=== PATIENT | male | born 2000 | race Caucasian/White ===

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

== ENCOUNTER 2018-09-23 11:14 | Emergency (ER) | payer BC, OTHER, SELFPAY ==
[2018-09-23 11:23] VITALS: BP 130/65; PULSE 64; RESP 18; TEMP 36.6; O2SAT 98
--- NOTE | 2018-09-23 11:27 | DI.RAD.S_ITS ---
PROCEDURE: XR CHEST 2V INDICATIONS: chest pain TECHNIQUE: 2 views of the chest were acquired. COMPARISON: None. FINDINGS: Surgical changes and devices: None. Lungs and pleura: Lungs are clear. No pleural effusions or pneumothorax. Mediastinum: Mediastinal contours are normal. Heart size is normal. Bones and chest wall: No suspicious bony abnormalities. Soft tissues appear unremarkable. IMPRESSION: No acute cardiopulmonary disease. Dictated by: Cameron Kong M.D. on 09/23/2018 at 12:58 Approved by: Cameron Kong M.D. on 09/23/2018 at 12:59
[2018-09-23 11:55] VITALS: BP 121/71; PULSE 54; RESP 14; O2SAT 100
[2018-09-23 11:56] LABS: Add Manual Diff / Slide Review NO; Basophils Absolute Auto 100 /uL (0-100); Basophils Percent Auto 0.9 % (0-2); Eosinophils Absolute Auto 300 /uL (0-450); Eosinophils Percent Auto 5.1 % (2-4); Hematocrit 44.4 % (41-53); Hemoglobin 14.9 g/dL (13.5-17.5); Lymphocytes Absolute Auto 1900 /uL (1100-4500); Lymphocytes Percent Auto 31.9 % (25-40); Mean Corpuscular HGB Conc 33.5 % (30-36); Mean Corpuscular Hemoglobin 29.7 PG (26-34); Mean Corpuscular Volume 88.6 fL (80-100); Monocytes Absolute Auto 600 /uL (0-900); Monocytes Percent Auto 10.2 % (3-14); Neutrophils Absolute Auto 3000 /uL (1500-7000); Neutrophils Percent Auto 51.9 % (50-75); Platelet Count 243 X10^3/uL (150-400); Red Blood Cell Count 5.01 X10^6/uL (4.5-5.9); Red Cell Distribution Width 12.8 % (11.6-14.8); White Blood Cell Count 5.9 X10^3/uL (4.5-11.0)
[2018-09-23 11:57] VITALS: BP 127/71; PULSE 71; RESP 17; O2SAT 100
[2018-09-23 12:00] VITALS: BP 138/77; PULSE 63; RESP 14; TEMP 37.3; O2SAT 100
[2018-09-23 12:01] LABS: Prothrombin Time 11.7 SECONDS (10.1-12.7)
[2018-09-23 12:04] LABS: PTT Partial Thromboplastin Tim 31 SECONDS (26.4-36.2)
[2018-09-23 12:05] LABS: Alanine Aminotransferase 20 IU/L (21-72); Albumin 4.9 g/dL (3.5-5.0); Albumin Globulin Ratio 1.3 (1.0-2.8); Alkaline Phosphatase 85 U/L (38-126); Aspartate Aminotransferase 24 IU/L (17-59); BUN Creatinine Ratio 17.5 (6-22); Bilirubin Total 0.6 mg/dL (0.2-1.3); Blood Urea Nitrogen 14 mg/dL (9-20); Calcium 9.6 mg/dL (8.4-10.2); Carbon Dioxide 27 mmol/L (22-32); Chloride 102 mmol/L (98-107); Creatine Kinase 129 U/L (55-170); Estimated Glomerular Filt Rate > 60.0 mL/min (>60); Globulin 3.7 g/dL (1.7-4.1); Glucose 93 mg/dL (70-100); HEMOLYSIS < 15 (0-50); Lipase 40 U/L (23-300); Potassium 4.1 mmol/L (3.4-5.1); Sodium 141 mmol/L (137-145); Total Protein 8.6 g/dL (6.3-8.2)
[2018-09-23 12:17] LABS: Troponin I < 0.012 ng/mL (0.01-0.034)
[2018-09-23 12:20] LABS: CKMB % Relative Index 0.9 % (1.5-5.0); Creatine Kinase MB 1.12 ng/mL (<2.37)
[2018-09-23 12:39] VITALS: BP 129/75; PULSE 55; RESP 18; O2SAT 100
--- NOTE | 2018-09-23 13:36 | ED.CHESTPAIN ---
HPI - Chest Pain <[facility] - Last Filed: 09/23/18 13:42> General Chief Complaint: Chest Pain Stated Complaint: heart issues-angina Time Seen by Provider: 09/23/18 12:24 Source: patient Mode of arrival: ambulatory Limitations: no limitations History of Present Illness HPI narrative: The patient is a 18-year-old male who denies medical history presents with chief complaint of chest pain. He states he has chest pain that she has for a few seconds either on the right-sided left side of his chest. He states this has been going on for weeks. He denies any associated palpitations, swelling of extremities. He states he did not get evaluated for it because he does not have time. He has not followed up with his primary care provider. He denies any syncope. He states he feels dizzy when he stands up too quickly at times, but not correlated with this chest pain. He denies any cough congestion or fever. He does state that he smokes marijuana on occasion, and does have a history of cocaine use, last use several months ago. He states that he googled his symptoms, and believes he has angina. Related Data Home Medications Medication Instructions Recorded Confirmed No Known Home Medications 09/23/18 09/23/18 Allergies Allergy/AdvReac Type Severity Reaction Status Date / Time No Known Drug Allergies Allergy Verified 09/23/18 11:26 Review of Systems <[facility] - Last Filed: 09/23/18 13:42> Review of Systems GENERAL: Denies chills, fatigue, malaise, fever, sweats. HEENT: Denies sinus pain, ear pain, sore throat, difficulty swallowing, dizziness. RESPIRATORY: Denies dyspnea, cough, wheezing, hemoptysis, sputum. CARDIOVASCULAR: See HPI GASTROINTESTINAL: Denies nausea, vomiting, abdominal pain, diarrhea, constipation, melena. : Denies dysuria, frequency, incontinence, hematuria, urinary retention. MUSCULOSKELETAL: denies weakness, joint pain, or bony pain SKIN: Denies rash, skin lesions, or other NEUROLOGIC: Denies weakness, headache, numbness, change in speech, confusion, seizures, incoordination. PSYCHIATRIC: No concerning psychosocial issues. 12 point review of systems is negative except for those stated above PFSH <[facility] - Last Filed: 09/23/18 13:42> Medical History (Updated 09/23/18 @ 13:40 by KERI Grove) Cocaine use (Acute) Family history non-contributory (Acute) Social History Smoking Status: Never smoker Social History Smoking Status: Never smoker Exam <KERI [place] - Last Filed: 09/23/18 13:42> Narrative Exam Narrative: GENERAL: This is a well-nourished, well-developed patient, no acute distress HEAD: Atraumatic. Normocephalic. No temporal or scalp tenderness. EYES: Pupils equal round and reactive. Extraocular motions intact. No scleral icterus. No injection or drainage. ENT: Nose without bleeding, purulent drainage or septal hematoma. Throat without erythema, tonsillar hypertrophy or exudate. Uvula midline. Airway patent. NECK: Trachea midline. No JVD or lymphadenopathy. Supple, nontender, no meningeal signs. CARDIOVASCULAR: Regular rate and rhythm without murmurs, gallops, or rubs. Bradycardic RESPIRATORY: Clear to auscultation. Breath sounds equal bilaterally. No wheezes, rales, or rhonchi. No cough. No increased respiratory effort. No accessory muscle use. GASTROINTESTINAL: Abdomen soft, non-tender, nondistended. No hepato-splenomegaly, or palpable masses. No guarding. EXTREMITIES: No clubbing, cyanosis, or edema. No joint tenderness, effusion, or edema noted. BACK: Nontender without deformity or crepitance. No flank tenderness. NEURO: AOx3. SKIN: No rash or erythema. Initial Vital Signs Initial Vital Signs: Vital Signs Temperature 97.8 F 09/23/18 11:23 Pulse Rate 64 09/23/18 11:23 Respiratory Rate 18 09/23/18 11:23 Blood Pressure 130/65 09/23/18 11:23 Pulse Oximetry 98 09/23/18 11:23 <Radha Smith MD - Last Filed: 09/23/18 19:21> Initial Vital Signs Initial Vital Signs: Vital Signs Temperature 97.8 F 09/23/18 11:23 Pulse Rate 64 09/23/18 11:23 Respiratory Rate 18 09/23/18 11:23 Blood Pressure 130/65 09/23/18 11:23 Pulse Oximetry 98 09/23/18 11:23 Course <KERI Grove - Last Filed: 09/23/18 13:42> Orders Ordered: ED Orders 09/23/18 11:27 XR chest 2V Stat 09/23/18 11:29 EKG-12 Lead Stat 09/23/18 11:44 Complete Blood Count AUTO DIFF Stat Comprehensive Metabolic Panel Stat Lipase Stat Partial Thromboplastin Time Stat Prothrombin Time INR Stat Troponin & CK Cardiac Panel Stat Vital Signs - 8 hr 09/23/18 11:23 09/23/18 11:55 09/23/18 11:57 Temperature 97.8 F Pulse Rate 64 54 L 71 Respiratory Rate 18 14 17 Blood Pressure 130/65 Blood Pressure [Right Arm] 121/71 127/71 Pulse Oximetry 98 100 100 09/23/18 12:00 09/23/18 12:39 09/23/18 13:43 Temperature 99.1 F Pulse Rate 63 55 L 52 L Respiratory Rate 14 18 16 Blood Pressure 132/77 Blood Pressure [Right Arm] 138/77 129/75 Pulse Oximetry 100 100 100 <Radha Smith MD - Last Filed: 09/23/18 19:21> Orders Ordered: ED Orders 09/23/18 11:27 XR chest 2V Stat 09/23/18 11:29 EKG-12 Lead Stat 09/23/18 11:44 Complete Blood Count AUTO DIFF Stat Comprehensive Metabolic Panel Stat Lipase Stat Partial Thromboplastin Time Stat Prothrombin Time INR Stat Troponin & CK Cardiac Panel Stat Vital Signs - 8 hr 09/23/18 11:23 09/23/18 11:55 09/23/18 11:57 Temperature 97.8 F Pulse Rate 64 54 L 71 Respiratory Rate 18 14 17 Blood Pressure 130/65 Blood Pressure [Right Arm] 121/71 127/71 Pulse Oximetry 98 100 100 09/23/18 12:00 09/23/18 12:39 09/23/18 13:43 Temperature 99.1 F Pulse Rate 63 55 L 52 L Respiratory Rate 14 18 16 Blood Pressure 132/77 Blood Pressure [Right Arm] 138/77 129/75 Pulse Oximetry 100 100 100 MDM - Chest Pain <KERI Grove - Last Filed: 09/23/18 13:42> Lab Data Result diagrams: 09/23/18 11:44 09/23/18 11:44 Lab Results 09/23/18 09/23/18 09/23/18 Range/Units 11:44 11:44 11:44 WBC 5.9 (4.5-11.0) X10^3/uL RBC 5.01 (4.5-5.9) X10^6/uL Hgb 14.9 (13.5-17.5) g/dL Hct 44.4 (41-53) % MCV 88.6 (80-100) fL MCH 29.7 (26-34) PG MCHC 33.5 (30-36) % RDW 12.8 (11.6-14.8) % Plt Count 243 (150-400) X10^3/uL Neut % (Auto) 51.9 (50-75) % Lymph % (Auto) 31.9 (25-40) % Glenn % (Auto) 10.2 (3-14) % Eos % (Auto) 5.1 H (2-4) % Baso % (Auto) 0.9 (0-2) % Neut # (Auto) 3000 (9855-8622) /uL Lymph # (Auto) 1900 (1288-4713) /uL Glenn # (Auto) 600 (0-900) /uL Eos # (Auto) 300 (0-450) /uL Baso # (Auto) 100 (0-100) /uL PT 11.7 (10.1-12.7) SECONDS INR 1.0 (0.9-1.3) APTT 31 (26.4-36.2) SECONDS Sodium 141 (137-145) mmol/L Potassium 4.1 (3.4-5.1) mmol/L Chloride 102 (98-107) mmol/L Carbon Dioxide 27 (22-32) mmol/L BUN 14 (9-20) mg/dL Creatinine 0.80 (0.66-1.25) mg/dL Estimated GFR > 60.0 (>60) mL/min BUN/Creatinine Ratio 17.5 (6-22) Glucose 93 (70-100) mg/dL Calcium 9.6 (8.4-10.2) mg/dL Total Bilirubin 0.6 (0.2-1.3) mg/dL AST 24 (17-59) IU/L ALT 20 L (21-72) IU/L Alkaline Phosphatase 85 (38-126) U/L Total Creatine Kinase 129 (55-170) U/L CK-MB (CK-2) 1.12 (<2.37) ng/mL CK-MB (CK-2) Rel Index 0.9 L (1.5-5.0) % Troponin I < 0.012 (0.01-0.034) ng/mL Total Protein 8.6 H (6.3-8.2) g/dL Albumin 4.9 (3.5-5.0) g/dL Globulin 3.7 (1.7-4.1) g/dL Albumin/Globulin Ratio 1.3 (1.0-2.8) Lipase 40 (23-300) U/L Imaging Data Chest x-ray: Radiologist's impression: [address] [address] XRay Report Signed Patient: Nazario Rodriguez SMR#: [id number] : 2000Acct:[id number] Age/Sex: MDate of Service: 09/23/18 Loc: ED Accession Number: [id number] Procedure: XR chest 2V Ordering Provider: Radha Smith MD PROCEDURE: XR CHEST 2V INDICATIONS: chest pain TECHNIQUE: 2 views of the chest were acquired. COMPARISON: None. FINDINGS: Surgical changes and devices: None. Lungs and pleura: Lungs are clear. No pleural effusions or pneumothorax. Mediastinum: Mediastinal contours are normal. Heart size is normal. Bones and chest wall: No suspicious bony abnormalities. Soft tissues appear unremarkable. IMPRESSION: No acute cardiopulmonary disease. Dictated by: Cameron Kong M.D. on 09/23/2018 at 12:58 Approved by: Cameron Kong M.D. on 09/23/2018 at 12:59 ECG Data Attestation: I personally reviewed and interpreted this ECG as follows: Interpretation: Sinus bradycardia. Ventricular rate 57. No ST elevation or depression. No ectopy noted. viewed by Dr Sarah NICOLE Narrative Medical decision making narrative: The patient is a 18-year-old female who presents with chest pain that lasts for a few seconds a few times a day which has gone on for several months. He has a normal EKG, normal chest x-ray negative troponin. He is in no acute distress. Given his story, I highly doubt that this pain is and as the patient suspects. I discussed at length follow up with his PCP. Discussed coming back to ER for any acute concerns such as syncope, chest pain that is not relieved after a few seconds etc. He is also afebrile and in no acute distress on his cell phone in the emergency department. Patient has no questions or concerns upon discharge <Radha Smith MD - Last Filed: 09/23/18 19:21> Lab Data Lab Results 09/23/18 09/23/18 09/23/18 Range/Units 11:44 11:44 11:44 WBC 5.9 (4.5-11.0) X10^3/uL RBC 5.01 (4.5-5.9) X10^6/uL Hgb 14.9 (13.5-17.5) g/dL Hct 44.4 (41-53) % MCV 88.6 (80-100) fL MCH 29.7 (26-34) PG MCHC 33.5 (30-36) % RDW 12.8 (11.6-14.8) % Plt Count 243 (150-400) X10^3/uL Neut % (Auto) 51.9 (50-75) % Lymph % (Auto) 31.9 (25-40) % Glenn % (Auto) 10.2 (3-14) % Eos % (Auto) 5.1 H (2-4) % Baso % (Auto) 0.9 (0-2) % Neut # (Auto) 3000 (6107-3273) /uL Lymph # (Auto) 1900 (8881-5958) /uL Glenn # (Auto) 600 (0-900) /uL Eos # (Auto) 300 (0-450) /uL Baso # (Auto) 100 (0-100) /uL PT 11.7 (10.1-12.7) SECONDS INR 1.0 (0.9-1.3) APTT 31 (26.4-36.2) SECONDS Sodium 141 (137-145) mmol/L Potassium 4.1 (3.4-5.1) mmol/L Chloride 102 (98-107) mmol/L Carbon Dioxide 27 (22-32) mmol/L BUN 14 (9-20) mg/dL Creatinine 0.80 (0.66-1.25) mg/dL Estimated GFR > 60.0 (>60) mL/min BUN/Creatinine Ratio 17.5 (6-22) Glucose 93 (70-100) mg/dL Calcium 9.6 (8.4-10.2) mg/dL Total Bilirubin 0.6 (0.2-1.3) mg/dL AST 24 (17-59) IU/L ALT 20 L (21-72) IU/L Alkaline Phosphatase 85 (38-126) U/L Total Creatine Kinase 129 (55-170) U/L CK-MB (CK-2) 1.12 (<2.37) ng/mL CK-MB (CK-2) Rel Index 0.9 L (1.5-5.0) % Troponin I < 0.012 (0.01-0.034) ng/mL Total Protein 8.6 H (6.3-8.2) g/dL Albumin 4.9 (3.5-5.0) g/dL Globulin 3.7 (1.7-4.1) g/dL Albumin/Globulin Ratio 1.3 (1.0-2.8) Lipase 40 (23-300) U/L Discharge Plan Departure Patient Disposition: Home Clinical Impression: Atypical chest pain Discharge Date/Time: 09/23/18 13:46 Interventions: ED Discharge Assessment Last Done: 09/23/18 13:43 Instructions: DI for Atypical Chest Pain Activity Restrictions/Additional Instructions: Your chest x-ray shows no pneumonia. Your lab work came back within normal limits. Please follow up with primary care provider. Please come back to the emergency department for any acute concerns such as passing out, significant shortness of breath etc Please avoid illicit drugs such as cocaine. Please come back to emergency department for any acute concerns. Prescriptions: No Action No Known Home Medications RF: 0
--- NOTE | 2018-09-23 13:42 | ED_ITS ---
HPI - Chest Pain [facility] Last Filed: 09/23/18 13:42> General Chief Complaint: Chest Pain Stated Complaint: heart issues-angina Time Seen by Provider: 09/23/18 12:24 Source: patient Mode of arrival: ambulatory Limitations: no limitations History of Present Illness HPI narrative: The patient is a 18-year-old male who denies medical history presents with chief complaint of chest pain. He states he has chest pain that she has for a few seconds either on the right-sided left side of his chest. He states this has been going on for weeks. He denies any associated palpitations, swelling of extremities. He states he did not get evaluated for it because he does not have time. He has not followed up with his primary care provider. He denies any syncope. He states he feels dizzy when he stands up too quickly at times, but not correlated with this chest pain. He denies any cough congestion or fever. He does state that he smokes marijuana on occasion, and does have a history of cocaine use, last use several months ago. He states that he googled his symptoms, and believes he has angina. Related Data Home Medications Medication Instructions Recorded Confirmed No Known Home Medications 09/23/18 09/23/18 Allergies Allergy/AdvReac Type Severity Reaction Status Date / Time No Known Drug Allergies Allergy Verified 09/23/18 11:26 Review of Systems <[facility] Last Filed: 09/23/18 13:42> Review of Systems GENERAL: Denies chills, fatigue, malaise, fever, sweats. HEENT: Denies sinus pain, ear pain, sore throat, difficulty swallowing, dizziness. RESPIRATORY: Denies dyspnea, cough, wheezing, hemoptysis, sputum. CARDIOVASCULAR: See HPI GASTROINTESTINAL: Denies nausea, vomiting, abdominal pain, diarrhea, constipation, melena. : Denies dysuria, frequency, incontinence, hematuria, urinary retention. MUSCULOSKELETAL: denies weakness, joint pain, or bony pain SKIN: Denies rash, skin lesions, or other NEUROLOGIC: Denies weakness, headache, numbness, change in speech, confusion, seizures, incoordination. PSYCHIATRIC: No concerning psychosocial issues. 12 point review of systems is negative except for those stated above PFSH <[facility] - Last Filed: 09/23/18 13:42> Medical History (Updated 09/23/18 @ 13:40 by KERI Grove) Cocaine use (Acute) Family history non-contributory (Acute) Social History Smoking Status: Never smoker Social History Smoking Status: Never smoker Exam <KERI Grove - Last Filed: 09/23/18 13:42> Narrative Exam Narrative: GENERAL: This is a well-nourished, well-developed patient, no acute distress HEAD: Atraumatic. Normocephalic. No temporal or scalp tenderness. EYES: Pupils equal round and reactive. Extraocular motions intact. No scleral icterus. No injection or drainage. ENT: Nose without bleeding, purulent drainage or septal hematoma. Throat without erythema, tonsillar hypertrophy or exudate. Uvula midline. Airway patent. NECK: Trachea midline. No JVD or lymphadenopathy. Supple, nontender, no meningeal signs. CARDIOVASCULAR: Regular rate and rhythm without murmurs, gallops, or rubs. Bradycardic RESPIRATORY: Clear to auscultation. Breath sounds equal bilaterally. No wheezes, rales, or rhonchi. No cough. No increased respiratory effort. No accessory muscle use. GASTROINTESTINAL: Abdomen soft, non-tender, nondistended. No hepato- splenomegaly, or palpable masses. No guarding. EXTREMITIES: No clubbing, cyanosis, or edema. No joint tenderness, effusion, or edema noted. BACK: Nontender without deformity or crepitance. No flank tenderness. NEURO: AOx3. SKIN: No rash or erythema. Initial Vital Signs Initial Vital Signs: Vital Signs Temperature 97.8 F 09/23/18 11:23 Pulse Rate 64 09/23/18 11:23 Respiratory Rate 18 09/23/18 11:23 Blood Pressure 130/65 09/23/18 11:23 Pulse Oximetry 98 09/23/18 11:23 <Radha Smith MD - Last Filed: 09/23/18 19:21> Initial Vital Signs Initial Vital Signs: Vital Signs Temperature 97.8 F 09/23/18 11:23 Pulse Rate 64 09/23/18 11:23 Respiratory Rate 18 09/23/18 11:23 Blood Pressure 130/65 09/23/18 11:23 Pulse Oximetry 98 09/23/18 11:23 Course <KERI Grove - Last Filed: 09/23/18 13:42> Orders Ordered: ED Orders 09/23/18 11:27 XR chest 2V Stat 09/23/18 11:29 EKG-12 Lead Stat 09/23/18 11:44 Complete Blood Count AUTO DIFF Stat Comprehensive Metabolic Panel Stat Lipase Stat Partial Thromboplastin Time Stat Prothrombin Time INR Stat Troponin & CK Cardiac Panel Stat Vital Signs - 8 hr 09/23/18 11:23 09/23/18 11:55 09/23/18 11:57 Temperature 97.8 F Pulse Rate 64 54 L 71 Respiratory Rate 18 14 17 Blood Pressure 130/65 Blood Pressure [Right Arm] 121/71 127/71 Pulse Oximetry 98 100 100 09/23/18 12:00 09/23/18 12:39 09/23/18 13:43 Temperature 99.1 F Pulse Rate 63 55 L 52 L Respiratory Rate 14 18 16 Blood Pressure 132/77 Blood Pressure [Right Arm] 138/77 129/75 Pulse Oximetry 100 100 100 <Radha Smith MD - Last Filed: 09/23/18 19:21> Orders Ordered: ED Orders 09/23/18 11:27 XR chest 2V Stat 09/23/18 11:29 EKG-12 Lead Stat 09/23/18 11:44 Complete Blood Count AUTO DIFF Stat Comprehensive Metabolic Panel Stat Lipase Stat Partial Thromboplastin Time Stat Prothrombin Time INR Stat Troponin & CK Cardiac Panel Stat Vital Signs - 8 hr 09/23/18 11:23 09/23/18 11:55 09/23/18 11:57 Temperature 97.8 F Pulse Rate 64 54 L 71 Respiratory Rate 18 14 17 Blood Pressure 130/65 Blood Pressure [Right Arm] 121/71 127/71 Pulse Oximetry 98 100 100 09/23/18 12:00 09/23/18 12:39 09/23/18 13:43 Temperature 99.1 F Pulse Rate 63 55 L 52 L Respiratory Rate 14 18 16 Blood Pressure 132/77 Blood Pressure [Right Arm] 138/77 129/75 Pulse Oximetry 100 100 100 MDM - Chest Pain <KERI Grove - Last Filed: 09/23/18 13:42> Lab Data Result diagrams: 09/23/18 11:44 09/23/18 11:44 Lab Results 09/23/18 09/23/18 09/23/18 Range/Units 11:44 11:44 11:44 WBC 5.9 (4.5-11.0) X10^3/uL RBC 5.01 (4.5-5.9) X10^6/uL Hgb 14.9 (13.5-17.5) g/dL Hct 44.4 (41-53) % MCV 88.6 (80-100) fL MCH 29.7 (26-34) PG MCHC 33.5 (30-36) % RDW 12.8 (11.6-14.8) % Plt Count 243 (150-400) X10^3/uL Neut % (Auto) 51.9 (50-75) % Lymph % (Auto) 31.9 (25-40) % [place] % (Auto) 10.2 (3-14) % Eos % (Auto) 5.1 H (2-4) % Baso % (Auto) 0.9 (0-2) % Neut # (Auto) 3000 (2568-8680) /uL Lymph # (Auto) 1900 (8119-1388) /uL [place] # (Auto) 600 (0-900) /uL Eos # (Auto) 300 (0-450) /uL Baso # (Auto) 100 (0-100) /uL PT 11.7 (10.1-12.7) SECONDS INR 1.0 (0.9-1.3) APTT 31 (26.4-36.2) SECONDS Sodium 141 (137-145) mmol/L Potassium 4.1 (3.4-5.1) mmol/L Chloride 102 (98-107) mmol/L Carbon Dioxide 27 (22-32) mmol/L BUN 14 (9-20) mg/dL Creatinine 0.80 (0.66-1.25) mg/dL Estimated GFR > 60.0 (>60) mL/min BUN/Creatinine Ratio 17.5 (6-22) Glucose 93 (70-100) mg/dL Calcium 9.6 (8.4-10.2) mg/dL Total Bilirubin 0.6 (0.2-1.3) mg/dL AST 24 (17-59) IU/L ALT 20 L (21-72) IU/L Alkaline Phosphatase 85 (38-126) U/L Total Creatine Kinase 129 (55-170) U/L CK-MB (CK-2) 1.12 (<2.37) ng/mL CK-MB (CK-2) Rel Index 0.9 L (1.5-5.0) % Troponin I < 0.012 (0.01-0.034) ng/mL Total Protein 8.6 H (6.3-8.2) g/dL Albumin 4.9 (3.5-5.0) g/dL Globulin 3.7 (1.7-4.1) g/dL Albumin/Globulin Ratio 1.3 (1.0-2.8) Lipase 40 (23-300) U/L Imaging Data Chest x-ray: Radiologist's impression: [address] [address] XRay Report Signed Patient: Nazario Rodriguez SMR#: [id number] : 2000Acct:[id number] Age/Sex: MDate of Service: 09/23/18 Loc: ED Accession Number: [id number] Procedure: XR chest 2V Ordering Provider: Radha Smith MD PROCEDURE: XR CHEST 2V INDICATIONS: chest pain TECHNIQUE: 2 views of the chest were acquired. COMPARISON: None. FINDINGS: Surgical changes and devices: None. Lungs and pleura: Lungs are clear. No pleural effusions or pneumothorax. Mediastinum: Mediastinal contours are normal. Heart size is normal. Bones and chest wall: No suspicious bony abnormalities. Soft tissues appear unremarkable. IMPRESSION: No acute cardiopulmonary disease. Dictated by: Cameron Kong M.D. on 09/23/2018 at 12:58 Approved by: Cameron Kong M.D. on 09/23/2018 at 12:59 ECG Data Attestation: I personally reviewed and interpreted this ECG as follows: Interpretation: Sinus bradycardia. Ventricular rate 57. No ST elevation or depression. No ectopy noted. viewed by Dr Sarah NICOLE Narrative Medical decision making narrative: The patient is a 18-year-old female who presents with chest pain that lasts for a few seconds a few times a day which has gone on for several months. He has a normal EKG, normal chest x-ray negative troponin. He is in no acute distress. Given his story, I highly doubt that this pain is and as the patient suspects. I discussed at length follow up with his PCP. Discussed coming back to ER for any acute concerns such as syncope, chest pain that is not relieved after a few seconds etc. He is also afebrile and in no acute distress on his cell phone in the emergency department. Patient has no questions or concerns upon discharge <Radha Smith MD - Last Filed: 09/23/18 19:21> Lab Data Lab Results 09/23/18 09/23/18 09/23/18 Range/Units 11:44 11:44 11:44 WBC 5.9 (4.5-11.0) X10^3/uL RBC 5.01 (4.5-5.9) X10^6/uL Hgb 14.9 (13.5-17.5) g/dL Hct 44.4 (41-53) % MCV 88.6 (80-100) fL MCH 29.7 (26-34) PG MCHC 33.5 (30-36) % RDW 12.8 (11.6-14.8) % Plt Count 243 (150-400) X10^3/uL Neut % (Auto) 51.9 (50-75) % Lymph % (Auto) 31.9 (25-40) % [place] % (Auto) 10.2 (3-14) % Eos % (Auto) 5.1 H (2-4) % Baso % (Auto) 0.9 (0-2) % Neut # (Auto) 3000 (6011-3566) /uL Lymph # (Auto) 1900 (1976-8233) /uL [place] # (Auto) 600 (0-900) /uL Eos # (Auto) 300 (0-450) /uL Baso # (Auto) 100 (0-100) /uL PT 11.7 (10.1-12.7) SECONDS INR 1.0 (0.9-1.3) APTT 31 (26.4-36.2) SECONDS Sodium 141 (137-145) mmol/L Potassium 4.1 (3.4-5.1) mmol/L Chloride 102 (98-107) mmol/L Carbon Dioxide 27 (22-32) mmol/L BUN 14 (9-20) mg/dL Creatinine 0.80 (0.66-1.25) mg/dL Estimated GFR > 60.0 (>60) mL/min BUN/Creatinine Ratio 17.5 (6-22) Glucose 93 (70-100) mg/dL Calcium 9.6 (8.4-10.2) mg/dL Total Bilirubin 0.6 (0.2-1.3) mg/dL AST 24 (17-59) IU/L ALT 20 L (21-72) IU/L Alkaline Phosphatase 85 (38-126) U/L Total Creatine Kinase 129 (55-170) U/L CK-MB (CK-2) 1.12 (<2.37) ng/mL CK-MB (CK-2) Rel Index 0.9 L (1.5-5.0) % Troponin I < 0.012 (0.01-0.034) ng/mL Total Protein 8.6 H (6.3-8.2) g/dL Albumin 4.9 (3.5-5.0) g/dL Globulin 3.7 (1.7-4.1) g/dL Albumin/Globulin Ratio 1.3 (1.0-2.8) Lipase 40 (23-300) U/L Discharge Plan Departure Patient Disposition: Home Clinical Impression: Atypical chest pain Discharge Date/Time: 09/23/18 13:46 Interventions: ED Discharge Assessment Last Done: 09/23/18 13:43 Instructions: DI for Atypical Chest Pain Activity Restrictions/Additional Instructions: Your chest x-ray shows no pneumonia. Your lab work came back within normal limits. Please follow up with primary care provider. Please come back to the emergency department for any acute concerns such as passing out, significant shortness of breath etc Please avoid illicit drugs such as cocaine. Please come back to emergency department for any acute concerns. Prescriptions: No Action No Known Home Medications RF: 0
[2018-09-23 13:43] VITALS: BP 132/77; PULSE 52; RESP 16; O2SAT 100
== END 2018-09-23 13:46 | disposition home or self-care (01) ==
PROVIDERS: Emergency Medicine; Emergency Provider Nurse Practitioner Family
DX: R07.89 Other chest pain (principal); R00.1 Bradycardia, unspecified
CPT/HCPCS: 36415; 71046; 80053; 82550; 82553; 83690; 84484; 85025; 85610; 85730; 93005; 99283; 99285

== ENCOUNTER 2020-09-07 13:26 | Emergency (ER) | payer OTHER, BC, SELFPAY ==
[2020-09-07 14:05] VITALS: BP 101/58; PULSE 69; RESP 14; TEMP 36.6; O2SAT 98; BMI 22.2
--- NOTE | 2020-09-07 16:41 | ED_ITS ---
HPI - Wound/Laceration General Chief Complaint: Wound/Laceration Stated Complaint: glass cut left arm/deep/can see tendon Time Seen by Provider: 09/07/20 15:30 Source: patient Mode of arrival: Ambulatory Limitations: no limitations History of Present Illness HPI narrative: Patient is a 20-year-old male who presents with left arm laceration is after glass shattered. 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 He has 3 lacerations on his left arm. Initially no numbness or tingling however was bandage quite tightly and is now having some numbness in his pointer finger. His he is able to flex and extend at his wrist. Onset (ago): hour(s) Related Data Previous Rx's Medication Instructions Recorded cephalexin 500 mg PO BID 7 Days #14 cap 09/07/20 Allergies Allergy/AdvReac Type Severity Reaction Status Date / Time No Known Drug Allergies Allergy Verified 09/07/20 14:09 Review of Systems Review of Systems Narrative: GENERAL: Denies chills,fever HEENT: Denies throat pain RESPIRATORY: Denies dyspnea, cough, wheezing CARDIOVASCULAR: Denies chest pain, palpitations GASTROINTESTINAL: Denies nausea, vomiting MUSCULOSKELETAL: Denies extremity pain, injury SKIN: See HPI NEUROLOGIC: Denies weakness, dizziness, headache, numbness 8 point review of systems is negative except for those stated above and HPI Patient History Medical History Cocaine use Family history non-contributory Social History Smoking Status: Never smoker Smoking Status: Never smoker alcohol intake frequency: a few times a week Substance Use Type: marijuana and crack/cocaine Exam Initial Vital Signs Initial Vital Signs: Vital Signs Temperature 97.8 F 09/07/20 14:05 Pulse Rate 69 09/07/20 14:05 Respiratory Rate 14 09/07/20 14:05 Blood Pressure 101/58 L 09/07/20 14:05 Pulse Oximetry 98 09/07/20 14:05 GENERAL: Well-appearing, well-nourished and in no acute distress. CARDIOVASCULAR: peripheral pulses in tact, cap refill <2 sec RESPIRATORY: No respiratory distress, speaks in full sentences without difficulty EXTREMITIES: Normal range of motion, no clubbing or edema. Neurovascularly intact Left wrist flexion and extension good abduction an ad duction of fingers able to make fist able to fully flex and extend all fingers cap refill less than 2 secon ds NEUROLOGICAL: Cranial nerves II through XII grossly intact. Normal gait and speech. SKIN: 3 lacerations as pictures Skin Full Arm Front Left: 1. 4 cm tendon identified in tact able to flex and extend wrist 2. 6 cm deep structures intact adipose tissue exposed 3. Flap structure 3 cm x 2 cm deep structures intact Procedures Laceration Repair Laceration 1: Site: upper extremity Side (If applicable): left Size (cm): 4 Description: linear Depth: simple, single layer Local Anesthetic: lidocaine 1% and with bicarb Amount of anesthesia used (mL): 5 Pre-repair: wound explored, irrigated extensively and deep structures intact (Tendon identified, no nerve involvement) Skin layer closed with: nylon Size (cm): 4-0 Number of sutures: 4 Technique: simple, interrupted (3) and horizontal mattress (1) Laceration 2: Site: upper extremity Side (If applicable): left Size (cm): 6 Description: linear Depth: simple, single layer Local Anesthetic: lidocaine 1% and with bicarb Amount of anesthesia used (mL): 5 Pre-repair: wound explored, irrigated extensively and deep structures intact Skin layer closed with: nylon Size (cm): 4-0 Number of sutures: 7 Technique: simple, interrupted (6) and horizontal mattress (1) Laceration 3: Site: upper extremity Side (If applicable): left Description: flap (3x2cm) Depth: simple, single layer Local Anesthetic: lidocaine 1% and with bicarb Amount of anesthesia used (mL): 5 Pre-repair: wound explored, irrigated extensively and deep structures intact Skin layer closed with: nylon Size (cm): 4-0 Number of sutures: 9 Technique: simple, interrupted Course Orders Ordered: Discontinued Medications Acetaminophen (Acetaminophen 325 Mg Tablet) 975 mg PO NOW ONE Stop: 09/07/20 17:28 Last Admin: 09/07/20 17:30 Dose: 975 mg Documented by: KEN Ibuprofen (Ibuprofen 400 Mg Tablet) 800 mg PO NOW ONE Stop: 09/07/20 17:28 Last Admin: 09/07/20 17:30 Dose: 800 mg Documented by: KEN Lidocaine/Sodium Bicarbonate (Lido 1%/Sod Bicarb 8.4% (10ml) 10 Ml Syringe) 10 ml INJ NOW ONE Stop: 09/07/20 16:46 Last Admin: 09/07/20 16:49 Dose: 10 ml Documented by: KEN Vital Signs Vital signs: Vital Signs - 8 hr 09/07/20 14:05 09/07/20 18:11 Temperature 97.8 F Pulse Rate 69 68 Respiratory Rate 14 Blood Pressure 101/58 L 133/63 Pulse Oximetry 98 96 MDM - Wound/Laceration MDM Narrative Medical decision making narrative: No evidence of glass or foreign bodies appreciated in lacerations. Lacerations came together nicely improved patient given instructions on care. Discharge Plan Departure Patient Disposition: Home Clinical Impression: Laceration of left forearm Qualifiers: Encounter type: initial encounter Qualified Code(s): S51.812A - Laceration w ithout foreign body of left forearm, initial encounter Instructions: DI for Laceration Repair Activity Restrictions/Additional Instructions: 1. Have your suture removed in 7 days, you may go to walk-in clinic, return to the ER or call your primary care physician. 2. No soaking in water including dishes, bathtubs, Lakes, swimming pools etc Apply Neosporin 1 times a day to help with healing 3. Signs of infection include, but not limited to, increased redness, increased swelling, increased pain, fever and purulent drainage, if the symptoms should arise, you may need an antibiotic and you should have a reevaluation either by your primary care provider or by the emergency department. MEDICATIONS Motrin 800 mg every 8 hours if needed for pain Tylenol 1000 mg every 6 hours if needed for [id number] pain do not take more than 4000mg in 1 day or 1000mg at a time Keflex 500 mg twice a day for 7 days Prescriptions: New cephalexin 500 mg capsule 500 mg PO BID 7 Days Qty: 14 RF: 0
[2020-09-07] MEDS: LIDO 1%/SOD BICARB 8.4% (10ML) 10 ML SYRINGE INJ ×2 (16:49→17:17)
[2020-09-07] MEDS: ACETAMINOPHEN 325 MG TABLET 975 MG PO (17:30)
[2020-09-07] MEDS: IBUPROFEN 400 MG TABLET 800 MG PO (17:30)
[2020-09-07 18:11] VITALS: BP 133/63; PULSE 68; O2SAT 96
== END 2020-09-07 18:13 | disposition home or self-care (01) ==
PROVIDERS: Emergency Provider Emergency Medicine
DX: S51.812A Laceration without foreign body of left forearm, initial encounter (principal); W25.XXXA Contact with sharp glass, initial encounter; Y99.0 Civilian activity done for income or pay
CPT/HCPCS: 12004; 99283; 99284